=== PATIENT | male | born 1990 | race Two or more races ===

== ENCOUNTER 2024-07-11 21:56 | Emergency (ER) | payer SELFPAY ==
[~2024-07-11] VITALS: Ht 177.8 cm; Wt 92.7 kg
[2024-07-11 22:26] VITALS: BP 153/100; PULSE 148; RESP 15; O2SAT 97
== END 2024-07-11 22:35 | disposition left against medical advice (07) ==
LOC: ER 21:56
DX: R10.9 Unspecified abdominal pain (principal); Z53.21 Procedure and treatment not carried out due to patient leaving prior to being seen by health care provider